=== PATIENT | female | born 1985 | race Hispanic/Latino ===

== ENCOUNTER 2017-05-14 22:44 | Emergency (ER) | payer OTHER ==
[~2017-05-14] VITALS: Ht 162.6 cm; Wt 73.9 kg
== END 2017-05-14 23:19 | disposition home or self-care (01) ==
LOC: FSED 22:44
DX: H60.332 Swimmer's ear, left ear (principal); Z33.1 Pregnant state, incidental
CPT/HCPCS: 99281